=== PATIENT | female | born 1970 | race Caucasian/White ===

== ENCOUNTER → 2017-06-13 | Outpatient (CLI) | payer BC ==
[~2017-06-13] MED LIST: CEPH500C PO; DOXY100C42 PO; ESCT10T PO; FERR-47 PO; HYDR-34 PO; IBUP-1773 PO; MULT-974 PO; OXYC-199 PO
== END ==
LOC: RAD 15:09
PROVIDERS: ATTEND Nurse Practitioner
DX: Z12.31 Encounter for screening mammogram for malignant neoplasm of breast (principal)
CPT/HCPCS: 77067